=== PATIENT | female | born 1980 | race Caucasian/White ===

== ENCOUNTER 2019-06-11 07:43 | Outpatient (CLI) | payer OTHER ==
[2019-06-11] MEDS ORDERED: GADOTERATE 10 MMOL/20 ML VIAL ONE (09:30)
== END 2019-06-11 23:59 | disposition home or self-care (01) ==
LOC: CFH 07:43
PROVIDERS: ATTEND Surgery
DX: N62 Hypertrophy of breast (principal); F10.21 Alcohol dependence, in remission
CPT/HCPCS: 77049; A9575; C8908; C8937